=== PATIENT | male | born 1995 | race American Indian/Alaskan Native ===

== ENCOUNTER 2017-07-01 20:38 | Inpatient (IN) | payer BC ==
[2017-07-01] MEDS ORDERED: Sodium Chloride 0.9% 1,000 ML IV ONE (21:06)
[2017-07-01] MEDS ORDERED: Belladonna-Phenobarbital PO STA (21:06)
[2017-07-01] MEDS ORDERED: Aluminum Hydroxide/Magnesium Hydroxide Susp (30 mL) PO STA (21:06)
--- NOTE | 2017-07-01 21:09 | C.PDOC ---
History Of Present Illness 21 year old male presents to the ED c/o diffuse abdominal pain associated with multiple episodes of vomiting. Patient reports that last night he had seafood and shortly after started developing diffuse abdominal pain along with vomiting. Patient reports he is unable to hold any food or liquids down. Patient was up all night vomiting. Patient denies headache, nausea, diarrhea, recent travel. Time Seen by Provider: 07/01/17 20:52 Chief Complaint (Nursing): Abdominal Pain History Per: Patient History/Exam Limitations: no limitations Onset/Duration Of Symptoms: Days Current Symptoms Are (Timing): Still Present Location Of Pain/Discomfort: Diffuse Radiation Of Pain To:: None Quality Of Discomfort: "Pain" Associated Symptoms: Vomiting Exacerbating Factors: None Recent travel outside of the [place]: No Additional History Per: Patient Past Medical History Reviewed: Historical Data, Nursing Documentation, Vital Signs Vital Signs: Last Vital Signs Temp 98.3 F 07/02/17 03:35 Pulse 55 L 07/02/17 03:35 Resp 18 07/02/17 03:35 BP 110/70 07/02/17 03:35 Pulse Ox 98 07/02/17 03:35 - Medical History PMH: Migraine Surgical History: No Surg Hx Family History: States: Unknown Family Hx - Social History Hx Tobacco Use: No Hx Alcohol Use: No Hx Substance Use: No - Immunization History Hx Tetanus Toxoid Vaccination: Yes Hx Influenza Vaccination: No Hx Pneumococcal Vaccination: No Review Of Systems Constitutional: Negative for: Fever, Chills Cardiovascular: Negative for: Chest Pain Respiratory: Negative for: Shortness of Breath Gastrointestinal: Positive for: Vomiting, Abdominal Pain Skin: Negative for: Rash Neurological: Negative for: Weakness, Numbness Physical Exam - Physical Exam Appears: Non-toxic, No Acute Distress Skin: Normal Color, Warm, Dry Head: Atraumatic, Normacephalic Eye(s): bilateral: Normal Inspection Nose: No Discharge Oral Mucosa: Moist Neck: Normal ROM, Supple Chest: Symmetrical Cardiovascular: Rhythm Regular, No Murmur Respiratory: Normal Breath Sounds, No Rales, No Rhonchi, No Wheezing Gastrointestinal/Abdominal: Soft, Tenderness (epigastric area and LUQ), No Guarding, No Rebound, Other (negative villegas's) Male Genital: Normal Inspection Extremity: Normal ROM, No Tenderness, Capillary Refill (< 2 seconds), No Swelling Pulses: Left Dorsalis Pedis: Normal, Right Dorsalis Pedis: Normal Neurological/Psych: Oriented x3, Normal Speech Gait: Steady ED Course And Treatment - Laboratory Results Result Diagrams: 07/01/17 21:32 07/01/17 21:32 O2 Sat by Pulse Oximetry: 100 (ON RA) Pulse Ox Interpretation: Normal - CT Scan/US CT abd Other Rad Studies (CT/US): Read By Radiologist, Radiology Report Reviewed CT/US Interpretation: FINDINGS: Lung bases: Patchy areas of consolidation are noted in the left lower lobe. ABDOMEN: Liver: Unremarkable. No mass. Gallbladder and bile ducts: Unremarkable. No calcified stones. No ductal dilation. Pancreas: Unremarkable. No mass. No ductal dilation. Spleen: Unremarkable. No splenomegaly. Adrenals: Unremarkable. No mass. Kidneys and ureters: Unremarkable. No solid mass. No hydronephrosis. Stomach and bowel: Unremarkable. No obstruction. No mucosal thickening. PELVIS: Appendix: A structure believed to represent the appendix in the right lower quadrant appears dilated. with a maximum diameter at the tip of the appendix of 1.2 cm.. TThere is enhancement of the wall of. the appendix. Bladder: Unremarkable. No mass. Reproductive: Unremarkable as visualized. ABDOMEN and PELVIS: Intraperitoneal space: A trace amount of free fluid is seen in the posterior cul-de-sac. No free air. Bones/joints: No acute fracture. No dislocation. Soft tissues: Unremarkable. Vasculature: Unremarkable. No abdominal aortic aneurysm. Lymph nodes: Unremarkable. No enlarged lymph nodes. IMPRESSION: 1. Enlarged appendix may represent appendicitis. 2. Left lower lobe pneumonia. Thank you for allowing us to participate in the care of your patient. Dictated and Authenticated by: Flor Hayden MD. 07/01/2017 11: 53 PM Eastern Time ([place] & [place]). Addendum created by Flor Hayden MD on 12:06 AM Eastern Time ([place] & [place]). THIS REPORT CONTAINS FINDINGS THAT MAY BE CRITICAL TO PATIENT CARE. The findings. were verbally communicated via telephone conference with Wanda Lindsey at 12:06 AM EDT on. 07/02/2017. The findings were acknowledged and understood. Medical Decision Making Medical Decision Making: Impression: epigastric pain , gastritis vs food poisoning Plan: * Labs * 1 tab PO * Lidocaine 2% * Maalox 30 ml PO * Pepcid 20 mg IVP * IV fluids * Zofran 4 mg IVP * CT abd Disposition - Disposition Disposition: HOSPITALIZED Disposition Time: 05:33 Condition: FAIR - Clinical Impression Clinical Impression: Appendicitis - Scribe Statement The provider has reviewed the documentation as recorded by the Scribe Edenilson Ross All medical record entries made by the Scribe were at my direction and personally dictated by me. I have reviewed the chart and agree that the record accurately reflects my personal performance of the history, physical exam, medical decision making, and the department course for this patient. I have also personally directed, reviewed, and agree with the discharge instructions and disposition.
[2017-07-01] MEDS ORDERED: Sodium Chloride 0.9% 1,000 ML ONE (21:10)
[2017-07-01 21:14] LABS: URINE BILIRUBIN NEGATIVE (NEGATIVE); URINE BLOOD NEGATIVE (NEGATIVE); URINE CLARITY Clear (Clear); URINE COLOR Colorless (YELLOW); URINE GLUCOSE (UA) NORMAL (Normal); URINE LEUKOCYTE ESTERASE NEG Leu/uL (Negative); URINE PROTEIN NEGATIVE (NEGATIVE); URINE UROBILINOGEN NORMAL mg/dL (0.2-1.0)
[2017-07-01 21:35] LABS: BASO # 0.1 K/uL (0.0-0.2); BASO % 0.4 % (0.0-2.0); EOS # 0.1 K/uL (0.0-0.7); EOS % 0.5 % (0.0-4.0); HEMOGLOBIN 15.9 g/dL (12.0-18.0); LYMPH % 14.2 % (20.0-40.0); MEAN CELL VOLUME 87.7 fL (80.0-94.0); MEAN CORPUSCULAR HEMOGLOBIN 30.5 pg (27.0-31.0); MEAN CORPUSCULAR HGB CONC 34.7 g/dL (33.0-37.0); MONO # 1.2 K/uL (0.0-0.8); MONO % 8.1 % (0.0-10.0); NEUT % 76.8 % (50.0-75.0); NRBC % 0.1 % (0.0-2.0); RBC 5.23 Mil/uL (4.40-5.90); RED CELL DISTRIBUTION WIDTH 12.7 % (11.5-14.5); WHITE BLOOD COUNT 14.3 K/uL (4.8-10.8)
[2017-07-01] MEDS ORDERED: Aluminum Hydroxide/Magnesium Hydroxide Susp (30 mL) ONE (21:44)
[2017-07-01] MEDS ORDERED: Belladonna-Phenobarbital ONE (21:46)
[2017-07-01 21:47] LABS: ALB/GLOB RATIO 1.1 (1.0-2.1); ALBUMIN 4.5 g/dL (3.5-5.0); ALT/SGPT 26 U/L (21-72); AST/SGOT 35 U/L (17-59); BLOOD UREA NITROGEN 7 mg/dL (9-20); CALCIUM 9.2 mg/dl (8.6-10.4); GFR AFRICAN-AMERICAN > 60; GFR NON-AFRICAN AMERICAN > 60; LIPASE 38 U/L (23-300)
[2017-07-01] MEDS ORDERED: Iohexol 300 100 ML IJ ONE (22:36)
--- NOTE | 2017-07-01 23:53 | CT ---
EXAM: CT Abdomen and Pelvis With Intravenous Contrast EXAM DATE/TIME: Exam ordered 07/01/2017 10:07 PM CLINICAL HISTORY: 21 years old, male; Pain; Abdominal pain TECHNIQUE: Axial computed tomography images of the abdomen and pelvis with intravenous contrast. All CT scans at this facility use one or more dose reduction techniques, viz.: automated exposure control; ma/kV adjustment per patient size (including targeted exams where dose is matched to indication; i.e. head); or iterative reconstruction technique. Coronal and sagittal reformatted images were created and reviewed. CONTRAST: 100 mL of administered intravenously. COMPARISON: No relevant prior studies available. FINDINGS: Lung bases: Patchy areas of consolidation are noted in the left lower lobe. ABDOMEN: Liver: Unremarkable. No mass. Gallbladder and bile ducts: Unremarkable. No calcified stones. No ductal dilation. Pancreas: Unremarkable. No mass. No ductal dilation. Spleen: Unremarkable. No splenomegaly. Adrenals: Unremarkable. No mass. Kidneys and ureters: Unremarkable. No solid mass. No hydronephrosis. Stomach and bowel: Unremarkable. No obstruction. No mucosal thickening. PELVIS: Appendix: A structure believed to represent the appendix in the right lower quadrant appears dilated with a maximum diameter at the tip of the appendix of 1.2 cm.. TThere is enhancement of the wall of the appendix. Bladder: Unremarkable. No mass. Reproductive: Unremarkable as visualized. ABDOMEN and PELVIS: Intraperitoneal space: A trace amount of free fluid is seen in the posterior cul-de-sac. No free air. Bones/joints: No acute fracture. No dislocation. Soft tissues: Unremarkable. Vasculature: Unremarkable. No abdominal aortic aneurysm. Lymph nodes: Unremarkable. No enlarged lymph nodes. IMPRESSION: 1. Enlarged appendix may represent appendicitis 2. Left lower lobe pneumonia
[2017-07-02] MEDS ORDERED: Piperacillin/Tazobact 2.25 gm Inj IV STA (00:21)
[2017-07-02] MEDS ORDERED: Piperacillin/Tazobact 3.375 gm 100 ML IVPB ONE ×2 (00:38→02:31)
--- NOTE | 2017-07-02 01:32 | CP.PCM.CON ---
History of Present Illness - History of Present Illness History of Present Illness: Surgery: Dr. Jackson Reason for consult: appendicitis CC: abdominal pain HPI: Patient is a 21 y/o male who presents complaining of abdominal pain that started acutely late Saturday night early Saturday morning. He reports being awoken from sleep due to pain. The pain is described as sharp pain mainly located in the lower portion of his abdomen. He denies diarrhea and c/o constipation. He reports associated n/v that started after the pain. He reports chills, denies actual fever. He complains of decrease appetite throughout the day and unable to tolerate po intake. Pain has persisted and not improved with attempt at home medications which include, pepto, immodium, and Gas ex. He denies having similar symptoms in the past. He denies chest pain, SOB, cough, strange food types, sick contacts. PMH: migraines PSH: none Social: denies ETOH, tobacco, or drug use Review of Systems - Constitutional Constitutional: Anorexia, Chills. absent: Fever - EENT Eyes: absent: Blurred Vision, Change in Vision Ears: absent: Disequilibrium, Dizziness Nose/Mouth/Throat: absent: Nasal Trauma, Sore Throat - Cardiovascular Cardiovascular: absent: Chest Pain, Dyspnea, Dyspnea on Exertion - Respiratory Respiratory: absent: Cough, Wheezing, Pain on Inspiration, Excessive Mucous Production - Gastrointestinal Gastrointestinal: Abdominal Pain, Constipation, Cramping, Nausea, Vomiting. absent: Bloating, Diarrhea - Genitourinary Genitourinary: absent: Hematuria, Pyuria - Musculoskeletal Musculoskeletal: Back Pain. absent: Neck Pain - Integumentary Integumentary: absent: Acne, Lesions - Neurological Neurological: absent: Abnormal Gait, Abnormal Hearing - Psychiatric Psychiatric: absent: Anxiety, Depression - Endocrine Endocrine: absent: Polyphagia, Polyuria - Hematologic/Lymphatic Hematologic: absent: Easy Bleeding, Easy Bruising Past Patient History - Past Social History Smoking Status: Never Smoked - NEUROLOGICAL Hx Migraine: Yes - PSYCHIATRIC Hx Substance Use: No Meds Allergies/Adverse Reactions: Allergies Allergy/AdvReac Type Severity Reaction Status Date / Time No Known Allergies Allergy Unverified 04/09/13 22:58 Physical Exam - Constitutional Appears: Non-toxic, No Acute Distress - Head Exam Head Exam: ATRAUMATIC, NORMOCEPHALIC - Eye Exam Eye Exam: EOMI, Normal appearance - ENT Exam ENT Exam: Mucous Membranes Moist - Respiratory Exam Respiratory Exam: NORMAL BREATHING PATTERN. absent: Respiratory Distress - Cardiovascular Exam Cardiovascular Exam: REGULAR RHYTHM. absent: Tachycardia - GI/Abdominal Exam GI & Abdominal Exam: Soft, Tenderness (suprapubic, RLQ, LLQ ). absent: Guarding , Hernia, Rebound, Rigid - Extremities Exam Extremities exam: Positive for: normal inspection. Negative for: calf tenderness - Neurological Exam Neurological exam: Alert, Oriented x3 - Psychiatric Exam Psychiatric exam: Normal Affect, Normal Mood - Skin Skin Exam: Dry, Normal Color, Warm Results - Vital Signs Recent Vital Signs: Last Vital Signs Temp 99.9 F H 07/02/17 00:34 Pulse 52 L 07/02/17 00:34 Resp 22 07/02/17 00:34 BP 107/69 07/02/17 00:34 Pulse Ox 100 07/02/17 00:34 - Labs Result Diagrams: 07/01/17 21:32 07/01/17 21:32 Labs: Laboratory Results - last 24 hr 07/01/17 07/01/17 07/01/17 21:07 21:32 21:32 WBC 14.3 H RBC 5.23 Hgb 15.9 Hct 45.9 MCV 87.7 MCH 30.5 MCHC 34.7 RDW 12.7 Plt Count 327 MPV 7.0 L Neut % (Auto) 76.8 H Lymph % (Auto) 14.2 L [place] % (Auto) 8.1 Eos % (Auto) 0.5 Baso % (Auto) 0.4 Neut # (Auto) 11.0 H Lymph # (Auto) 2.0 [place] # (Auto) 1.2 H Eos # (Auto) 0.1 Baso # (Auto) 0.1 Sodium 142 Potassium 3.6 Chloride 100 Carbon Dioxide 27 Anion Gap 18 BUN 7 L Creatinine 0.8 Est GFR ( Amer) > 60 Est GFR (Non-Af Amer) > 60 Random Glucose 95 Calcium 9.2 Total Bilirubin 0.7 AST 35 ALT 26 Alkaline Phosphatase 86 Total Protein 8.6 H Albumin 4.5 Globulin 4.0 H Albumin/Globulin Ratio 1.1 Lipase 38 Urine Color Colorless Urine Clarity Clear Urine pH 7.0 Ur Specific [place] 1.002 L Urine Protein Negative Urine Glucose (UA) Normal Urine Ketones Negative Urine Blood Negative Urine Nitrate Negative Urine Bilirubin Negative Urine Urobilinogen Normal Ur Leukocyte Esterase Neg Urine WBC (Auto) < 1 - Imaging and Cardiology CT scan - abdomen Status: Image reviewed by me, Report reviewed by me (1.2 cm dilated appendix, RLL pneumonia ) Assessment & Plan - Assessment and Plan (Free Text) Assessment: 21 y/o male w/ abdominal pain 2/2 appendicitis also found to have RLL pneumonia Plan: -admit to medicine for treatment of pneumonia -Zosyn -NPO -IVFs -pain control -nausea control -added on to OR tomorrow for lap appy -further recs per Dr. Jackson [facility] PGY3 - Date & Time Date: 07/02/17 Time: 01:35
--- NOTE | 2017-07-02 02:57 | CP.PCM.HP ---
<Harpreet Miller - Last Filed: 07/02/17 05:48> History of Present Illness - History of Present Illness History of Present Illness: Surgery: Dr. Jackson Reason for consult: appendicitis CC: abdominal pain HPI: Patient is a 21 y/o male who presents complaining of abdominal pain that started acutely late Saturday night early Saturday morning. He reports being awoken from sleep due to pain. The pain is described as sharp pain mainly located in the lower portion of his abdomen. He denies diarrhea and c/o constipation. He reports associated n/v that started after the pain. He reports chills, denies actual fever. He complains of decrease appetite throughout the day and unable to tolerate po intake. Pain has persisted and not improved with attempt at home medications which include, pepto, immodium, and Gas ex. He denies having similar symptoms in the past. He denies chest pain, SOB, cough, strange food types, sick contacts. PMH: migraines PSH: none Social: denies ETOH, tobacco, or drug use Present on Admission - Present on Admission Any Indicators Present on Admission: No Review of Systems - Constitutional Constitutional: Anorexia, Chills, Fever - EENT Eyes: absent: Blurred Vision, Change in Vision Ears: absent: Ear Discharge, Dizziness Nose/Mouth/Throat: absent: Nasal Congestion, Nasal Discharge - Cardiovascular Cardiovascular: absent: Chest Pain, Diaphoresis, Dyspnea - Respiratory Respiratory: absent: Cough, Wheezing, Excessive Mucous Production - Gastrointestinal Gastrointestinal: Abdominal Pain, Constipation, Cramping, Nausea, Vomiting. absent: Diarrhea, Hematemesis, Hematochezia - Genitourinary Genitourinary: absent: Hematuria, Pyuria - Musculoskeletal Musculoskeletal: absent: Back Pain, Neck Pain - Integumentary Integumentary: absent: Acne, Lesions - Neurological Neurological: absent: Dizziness, Numbness - Psychiatric Psychiatric: absent: Confusion, Depression - Endocrine Endocrine: absent: Polyphagia, Polyuria - Hematologic/Lymphatic Hematologic: absent: Easy Bleeding, Easy Bruising Past Patient History - Past Social History Smoking Status: Never Smoked - NEUROLOGICAL Hx Migraine: Yes - PSYCHIATRIC Hx Substance Use: No Meds Allergies/Adverse Reactions: Allergies Allergy/AdvReac Type Severity Reaction Status Date / Time No Known Allergies Allergy Unverified 04/09/13 22:58 Physical Exam - Constitutional Appears: Non-toxic, No Acute Distress - Head Exam Head Exam: ATRAUMATIC, NORMOCEPHALIC - Eye Exam Eye Exam: EOMI, Normal appearance - ENT Exam ENT Exam: Mucous Membranes Moist - Respiratory Exam Respiratory Exam: NORMAL BREATHING PATTERN. absent: Respiratory Distress - Cardiovascular Exam Cardiovascular Exam: REGULAR RHYTHM. absent: Tachycardia - GI/Abdominal Exam GI & Abdominal Exam: Soft, Tenderness (suprapubic and RLQ). absent: Distended, Guarding, Rebound, Rigid - Extremities Exam Extremities exam: Positive for: normal inspection. Negative for: calf tenderness - Neurological Exam Neurological exam: Alert, Oriented x3 - Psychiatric Exam Psychiatric exam: Normal Affect, Normal Mood - Skin Skin Exam: Dry, Normal Color, Warm Results - Vital Signs Recent Vital Signs: Last Vital Signs Temp 97.7 F 07/02/17 02:41 Pulse 55 L 07/02/17 02:41 Resp 16 07/02/17 02:41 BP 119/72 07/02/17 02:41 Pulse Ox 100 07/02/17 02:46 - Labs Result Diagrams: 07/01/17 21:32 07/01/17 21:32 Labs: Laboratory Results - last 24 hr 07/01/17 07/01/17 07/01/17 21:07 21:32 21:32 WBC 14.3 H RBC 5.23 Hgb 15.9 Hct 45.9 MCV 87.7 MCH 30.5 MCHC 34.7 RDW 12.7 Plt Count 327 MPV 7.0 L Neut % (Auto) 76.8 H Lymph % (Auto) 14.2 L [place] % (Auto) 8.1 Eos % (Auto) 0.5 Baso % (Auto) 0.4 Neut # (Auto) 11.0 H Lymph # (Auto) 2.0 [place] # (Auto) 1.2 H Eos # (Auto) 0.1 Baso # (Auto) 0.1 Sodium 142 Potassium 3.6 Chloride 100 Carbon Dioxide 27 Anion Gap 18 BUN 7 L Creatinine 0.8 Est GFR ( Amer) > 60 Est GFR (Non-Af Amer) > 60 Random Glucose 95 Calcium 9.2 Total Bilirubin 0.7 AST 35 ALT 26 Alkaline Phosphatase 86 Total Protein 8.6 H Albumin 4.5 Globulin 4.0 H Albumin/Globulin Ratio 1.1 Lipase 38 Urine Color Colorless Urine Clarity Clear Urine pH 7.0 Ur Specific [place] 1.002 L Urine Protein Negative Urine Glucose (UA) Normal Urine Ketones Negative Urine Blood Negative Urine Nitrate Negative Urine Bilirubin Negative Urine Urobilinogen Normal Ur Leukocyte Esterase Neg Urine WBC (Auto) < 1 - Impressions Impression: CT: 1.2 cm dilated appy w/ mild inflammation Assessment & Plan - Assessment and Plan (Free Text) Assessment: 21 y/o male w/ abdominal pain 2/2 appendicitis Plan: -Zosyn -NPO -IVFs -pain control -nausea control -added on to OR tomorrow for lap appy -further recs per Dr. Jackson AKWhite PGY3 <Willie Jackson - Last Filed: 07/06/17 17:53> Results - Vital Signs Recent Vital Signs: Last Vital Signs Temp 98.5 F 07/03/17 16:00 Pulse 96 H 07/03/17 16:00 Resp 20 07/03/17 16:00 BP 115/73 07/03/17 16:00 Pulse Ox 98 07/03/17 16:00 - Labs Result Diagrams: 07/03/17 11:52 07/02/17 08:56 Attending/Attestation - Attestation I have personally seen and examined this patient.: Yes I have fully participated in the care of the patient.: Yes I have reviewed all pertinent clinical information: Yes Notes (Text): Pt was seen and examined at bedside Agree with above note and assessment Pt with RLQ pain and tenderness Labs and radiology reviewed Ass: Acute Appendicitis with Leucocystosis Plan : OR for Lap appendectomy possible Open Consent IV antibiotics NPO, IVF Plan d.w pt in detail Risk and benefit explained in detail.
[2017-07-02] MEDS: Piperacill/Tazo 3.375gm in Dex 3.375 GM/50 ML BAG IVPB SCH ×4 (03:07→20:06)
[2017-07-02] MEDS: Lactated Ringer's 1,000 ML IV SCH ×2 (03:17→12:06)
[2017-07-02] MEDS: Morphine 4 MG/ML VIAL IVP PRN ×2 (03:45→12:05)
[2017-07-02 09:01] LABS: BASO % 0.2 % (0.0-2.0); EOS # 0.1 K/uL (0.0-0.7); EOS % 0.8 % (0.0-4.0); HEMOGLOBIN 14.1 g/dL (12.0-18.0); LYMPH # 2.6 K/uL (1.0-4.3); LYMPH % 18.9 % (20.0-40.0); MEAN CELL VOLUME 87.8 fL (80.0-94.0); MEAN CORPUSCULAR HEMOGLOBIN 30.9 pg (27.0-31.0); MEAN CORPUSCULAR HGB CONC 35.2 g/dL (33.0-37.0); MEAN PLATELET VOLUME 7.6 fL (7.2-11.7); MONO # 1.3 K/uL (0.0-0.8); MONO % 9.8 % (0.0-10.0); NEUT # 9.6 K/uL (1.8-7.0); NEUT % 70.3 % (50.0-75.0); RBC 4.57 Mil/uL (4.40-5.90); RED CELL DISTRIBUTION WIDTH 12.8 % (11.5-14.5); WHITE BLOOD COUNT 13.7 K/uL (4.8-10.8)
[2017-07-02 09:05] LABS: INR 1.1; PROTHROMBIN TIME 11.9 SECONDS (9.7-12.2)
[2017-07-02 09:12] LABS: ALB/GLOB RATIO 1.2 (1.0-2.1); ALBUMIN 3.7 g/dL (3.5-5.0); ALT/SGPT 25 U/L (21-72); AST/SGOT 27 U/L (17-59); BLOOD UREA NITROGEN 5 mg/dL (9-20); CALCIUM 8.8 mg/dl (8.6-10.4); GFR AFRICAN-AMERICAN > 60; GFR NON-AFRICAN AMERICAN > 60
[2017-07-02] MEDS ORDERED: Midazolam 2 MG/2 ML VIAL ONE (16:16)
[2017-07-02] MEDS ORDERED: Propofol 10 mg/ml Inj (20 ML) ONE (16:16)
[2017-07-02] MEDS: Lidocaine/Epinephrine 1% 1:100000 10 ML IJ ONE ×2 (16:44→16:57)
[2017-07-02] MEDS: Bupivacaine HCl 0.25% PF (30 ml) Inj ONE ×2 (16:44→16:56)
[2017-07-02] MEDS ORDERED: Lactated Ringer's 1,000 ML IV SCH (17:15)
[2017-07-02] MEDS ORDERED: Neostigmine Methylsulfate 3mg/3ml Syringe IV ONE (17:18)
--- NOTE | 2017-07-02 17:43 | PCM.SURG1 ---
Surgeon's Initial Post Op Note - Surgeon's Notes Surgeon: Dr. Jackson Community Educator: PGY1, Loli ADKINS Type of Anesthesia: General Endo Pre-Operative Diagnosis: Acute Appendicitis Operative Findings: Pelvic abscess, norm-appendicial fluid Post-Operative Diagnosis: 1. Acute appendicitis 2. Pelvic Abscess Operation Performed: Laprascopic appendectomy Specimen/Specimens Removed: appendix Estimated Blood Loss: EBL {In ML}: 10 Drains Used: No Drains Post-Op Condition: Good Date of Surgery/Procedure: 07/02/17 Time of Surgery/Procedure: 17:42
[2017-07-02] MEDS: HYDROmorphone 0.5 mg/0.5 ml ISec IVP PRN ×2 (17:49→18:04)
[2017-07-02] MEDS ORDERED: Oxycodone/Acetaminophen 5/325 mg Tab PO PRN (17:56)
[2017-07-03] MEDS: Morphine 4 MG/ML VIAL IVP PRN ×5 (00:07→18:07)
[2017-07-03 00:43] VITALS: RESP 20
[2017-07-03] MEDS: Piperacill/Tazo 3.375gm in Dex 3.375 GM/50 ML BAG IVPB SCH ×3 (02:25→13:29)
--- NOTE | 2017-07-03 08:08 | OP ---
PROCEDURE DATE: 07/02/2017 PREOPERATIVE DIAGNOSES: 1. Acute appendicitis and leucocytosis. 2. Abdominal pain. POSTOPERATIVE DIAGNOSES: 1. Acute suppurative appendicitis. 2. Pelvic abscess. 3. Localized peritonitis. PROCEDURES: 1. Laparoscopic appendectomy. 2. Laparoscopic drainage of pelvic abscess. SURGEON: Dr. Jackson. BOTTLE LINE WORKER: Onel Ragsdale PGY-1 resident. TYPE OF ANESTHESIA: General endotracheal tube anesthesia.. ESTIMATED BLOOD LOSS: 10 mL. DRAIN: None. PATHOLOGY: The appendix was sent for pathology. COMPLICATIONS: None. INTRAOPERATIVE FINDINGS: The patient had acute suppurative appendicitis with purulent pelvic collection. DESCRIPTION OF PROCEDURE: On intraoperative steps, this 21-year-old male who was diagnosed with acute appendicitis with leucocytosis and the patient was consented for the laparoscopic appendectomy possible open, brought to the OR, placed supine in the operating table. After induction of the anesthesia, abdomen was prepped and draped in usual sterile fashion. A supraumbilical transverse incision was made after incision the skin, subcutaneous tissue, and fascia. The Fields port was placed. Pneumo was created. Another 12 mm port was placed in left lower quadrant and 5 mm port was placed in suprapubic region. Grasper and dissector were introduced and appendix appeared to be extremely thick and edematous and it was in the pelvic position and the patient also had a pelvic abscess. The suction and irrigation of the pelvic area as well as the abscess area was done and the abscess was completely drained and cleaned and now the mesoappendix was resected with a harmonic scalpel. Base of the appendix was resected with AURELIA and proper hemostasis was achieved. Again, suction and irrigation of the pelvic area, periappendicular area, and the perihepatic area was done and after proper hemostasis, all the ports were taken out under vision. Pneumo was deflated. Appendix was sent off the table for pathology. The umbilical port site and the left lower quadrant port site was closed in 2 layer, the fascia with 0 Vicryl, skin with 4-0 Monocryl, and dry sterile dressing was applied. The patient tolerated the procedure well. Count of instrument and gauze was correct. There was no apparent complication. The patient was extubated in OR and sent to the postanesthesia care unit in stable condition. Willie Jackson MD
[2017-07-03 12:37] LABS: HEMOGLOBIN 13.8 g/dL (12.0-18.0); MEAN CELL VOLUME 87.7 fL (80.0-94.0); MEAN CORPUSCULAR HGB CONC 35.3 g/dL (33.0-37.0); MEAN PLATELET VOLUME 7.2 fL (7.2-11.7); RBC 4.44 Mil/uL (4.40-5.90); RED CELL DISTRIBUTION WIDTH 12.7 % (11.5-14.5); WHITE BLOOD COUNT 9.6 K/uL (4.8-10.8)
--- NOTE | 2017-07-03 14:21 | CP.PCM.DIS ---
Provider - Provider Date of Admission: 07/02/17 02:44 Attending physician: Willie Jackson MD Time Spent in preparation of Discharge (in minutes): 35 Diagnosis - Discharge Diagnosis (1) Appendicitis Status: Resolved Hospital Course - Lab Results Lab Results: Most Recent Lab Values WBC 9.6 K/uL (4.8-10.8) 07/03/17 11:52 RBC 4.44 Mil/uL (4.40-5.90) 07/03/17 11:52 Hgb 13.8 g/dL (12.0-18.0) 07/03/17 11:52 Hct 38.9 % (35.0-51.0) 07/03/17 11:52 MCV 87.7 fL (80.0-94.0) 07/03/17 11:52 MCH 31.0 pg (27.0-31.0) 07/03/17 11:52 MCHC 35.3 g/dL (33.0-37.0) 07/03/17 11:52 RDW 12.7 % (11.5-14.5) 07/03/17 11:52 Plt Count 270 K/uL (130-400) 07/03/17 11:52 MPV 7.2 fL (7.2-11.7) 07/03/17 11:52 Neut % (Auto) 70.3 % (50.0-75.0) 07/02/17 08:53 Lymph % (Auto) 18.9 % (20.0-40.0) L 07/02/17 08:53 [place] % (Auto) 9.8 % (0.0-10.0) 07/02/17 08:53 Eos % (Auto) 0.8 % (0.0-4.0) 07/02/17 08:53 Baso % (Auto) 0.2 % (0.0-2.0) 07/02/17 08:53 Neut # (Auto) 9.6 K/uL (1.8-7.0) H 07/02/17 08:53 Lymph # (Auto) 2.6 K/uL (1.0-4.3) 07/02/17 08:53 [place] # (Auto) 1.3 K/uL (0.0-0.8) H 07/02/17 08:53 Eos # (Auto) 0.1 K/uL (0.0-0.7) 07/02/17 08:53 Baso # (Auto) 0.0 K/uL (0.0-0.2) 07/02/17 08:53 PT 11.9 SECONDS (9.7-12.2) 07/02/17 08:53 INR 1.1 07/02/17 08:53 APTT 31 SECONDS (21-34) 07/02/17 08:53 Sodium 140 mmol/L (132-148) 07/02/17 08:56 Potassium 3.7 mmol/L (3.6-5.2) 07/02/17 08:56 Chloride 103 mmol/L (98-107) 07/02/17 08:56 Carbon Dioxide 26 mmol/L (22-30) 07/02/17 08:56 Anion Gap 14 (10-20) 07/02/17 08:56 BUN 5 mg/dL (9-20) L 07/02/17 08:56 Creatinine 0.9 mg/dL (0.8-1.5) 07/02/17 08:56 Est GFR ( Amer) > 60 07/02/17 08:56 Est GFR (Non-Af Amer) > 60 07/02/17 08:56 Random Glucose 96 mg/dL (75-110) 07/02/17 08:56 Calcium 8.8 mg/dl (8.6-10.4) 07/02/17 08:56 Total Bilirubin 0.7 mg/dL (0.2-1.3) 07/02/17 08:56 AST 27 U/L (17-59) 07/02/17 08:56 ALT 25 U/L (21-72) 07/02/17 08:56 Alkaline Phosphatase 64 U/L (38-126) 07/02/17 08:56 Total Protein 6.8 g/dL (6.3-8.3) 07/02/17 08:56 Albumin 3.7 g/dL (3.5-5.0) 07/02/17 08:56 Globulin 3.0 gm/dL (2.2-3.9) 07/02/17 08:56 Albumin/Globulin Ratio 1.2 (1.0-2.1) 07/02/17 08:56 Lipase 38 U/L (23-300) 07/01/17 21:32 Urine Color Colorless (YELLOW) 07/01/17 21:07 Urine Clarity Clear (Clear) 07/01/17 21:07 Urine pH 7.0 (5.0-8.0) 07/01/17 21:07 Ur Specific Colp 1.002 (1.003-1.030) L 07/01/17 21:07 Urine Protein Negative mg/dL (NEGATIVE) 07/01/17 21:07 Urine Glucose (UA) Normal mg/dL (Normal) 07/01/17 21:07 Urine Ketones Negative mg/dL (NEGATIVE) 07/01/17 21:07 Urine Blood Negative (NEGATIVE) 07/01/17 21:07 Urine Nitrate Negative (NEGATIVE) 07/01/17 21:07 Urine Bilirubin Negative (NEGATIVE) 07/01/17 21:07 Urine Urobilinogen Normal mg/dL (0.2-1.0) 07/01/17 21:07 Ur Leukocyte Esterase Neg [place]/uL (Negative) 07/01/17 21:07 Urine WBC (Auto) < 1 /hpf (0-5) 07/01/17 21:07 - Hospital Course Hospital Course: Patient admitted 07/01/17 for abdominal pain 07/02/17 had unevenful laparoscopic appendectomy. He had a fever on POD0 which resolved no leukocytosis on POD1. Patient is tolerating diet, ambulating feeling well. Discharge Exam - Head Exam Head Exam: ATRAUMATIC, NORMOCEPHALIC - Eye Exam Eye Exam: EOMI, PERRL - Respiratory Exam Respiratory Exam: NORMAL BREATHING PATTERN - Cardiovascular Exam Cardiovascular Exam: REGULAR RHYTHM - GI/Abdominal Exam GI & Abdominal Exam: Soft, Tenderness. absent: Distended, Firm, Guarding, Hernia Additional comments: Appropriate post operative pain - Neurological Exam Neurological exam: Alert, Oriented x3 - Psychiatric Exam Psychiatric exam: Normal Affect, Normal Mood - Skin Skin Exam: Dry, Intact Discharge Plan - Follow Up Plan Condition: GOOD Disposition: HOME/ ROUTINE Patient education suggested?: No Instructions: Appendectomy, Laparoscopic Surgery (DC) Additional Instructions: Can shower after 2-5 days. Leave dressing on till then. Steri-stirps will fall off on its own. do not take extended baths or go swimming in ocean. No heavy lifting greater than 20lbs for 4-6 weeks. If fever greater than 100.4 take over the counter tylenol. if fever persists go to the ER. Follow up with Dr. Jackson in 1-2 weeks after discharge. Referrals: Willie Jackson MD [Staff Provider] -
[2017-07-03 16:27] VITALS: BP 115/73; PULSE 96; TEMP 98.5; O2SAT 98
[2017-07-03] MEDS ORDERED: Pneumococcal 23-Valent Vaccine IM ONE (19:00)
== END 2017-07-03 20:05 | disposition home or self-care (01) | DRG 340 ==
LOC: C.ER 20:38 → C.3T 07-02 02:44
PROVIDERS: ADMIT Surgery Surgical Critical Care; ATTEND Surgery Surgical Critical Care
PROC: 0DTJ4ZZ Resection of Appendix, Percutaneous Endoscopic Approach (ICD-10-PCS; 2017-07-02)
PROC: 0W9J4ZZ Drainage of Pelvic Cavity, Percutaneous Endoscopic Approach (ICD-10-PCS; principal; 2017-07-02 16:25)
DX: K35.2 Acute appendicitis with generalized peritonitis (principal)